=== PATIENT | male | born 1970 ===

== ENCOUNTER 2016-09-01 18:36 | Emergency (ER) | payer OTHER ==
[2016-09-01 18:55] VITALS: PULSE 78; RESP 16; TEMP 98.3; O2SAT 100
--- NOTE | 2016-09-01 19:05 | ED PDOC ---
Lower Extremity Pain/Injury Time Seen by Provider: 09/01/16 19:03 Chief Complaint (Nursing): Lower Extremity Problem/Injury Chief Complaint (Provider): left knee injury History Per: Patient History/Exam Limitations: no limitations - Knee Description Of Injury: Fell (two weeks ago fell on rug at home now with pain and pain with ROM. admits to swelling and reddness. no fever no chills no back ramana and no bug bite.) Past Medical History Reviewed: Historical Data, Nursing Documentation, Vital Signs Vital Signs: Last Vital Signs Temp 98.3 F 09/01/16 18:53 Pulse 78 09/01/16 18:53 Resp 16 09/01/16 18:53 BP Pulse Ox 100 09/01/16 18:53 - Medical History PMH: No Chronic Diseases - Family History Family History: States: No Known Family Hx - Home Medications Home Medications: Ambulatory Orders Medication Instructions Recorded Ibuprofen [Motrin Tab] 1 tab PO BID PRN 09/01/16 Leg Brace [Knee Brace] 1 each MC DAILY #1 each 09/01/16 Naproxen 500 mg PO BID #30 tablet. 09/01/16 - Allergies Allergies/Adverse Reactions: Allergies Allergy/AdvReac Type Severity Reaction Status Date / Time No Known Allergies Allergy Verified 09/01/16 18:53 Wells Criteria for PE - Wells Criteria for Pulmonary Embolism Clinical Signs and Symptoms of DVT: No P.E is #1 Diagnosis, or Equally Likely: No Heart Rate >100: No Immobilization at least 3 days;Surgery previous 4 weeks: No Previous, objectively diagnosed PE or DVT: No Hemoptysis: No Malignancy w/treatment within 6 months, or palliative: No Total Score: 0 Review of Systems ROS Statement: Except As Marked, All Systems Reviewed And Found Negative Musculoskeletal: Positive for: Other (knee pain) Physical Exam - Reviewed Nursing Documentation Reviewed: Yes Vital Signs Reviewed: Yes - Physical Exam Appears: Positive for: Well, Non-toxic, No Acute Distress Skin: Positive for: Normal Color, Warm, DRY Cardiovascular/Chest: Positive for: Regular Rate, Rhythm Respiratory: Positive for: CNT, Normal Breath Sounds Extremity: Positive for: Other (right knee:swelling noted superior to patella, no effusion noted. FROM of knee neurovasc intact no skin changes. ) Neurologic/Psych: Positive for: Alert, Oriented - ECG O2 Sat by Pulse Oximetry: 100 - Radiology X-Ray: Interpreted by Me X-Ray Interpretation: No Acute Disease (some dec joint space noted ) - Progress ED Course And Treament: xray to r/o bony injury. Medical Decision Making Medical Decision Making: Pt advised to f/u with orthopedic clinic for further eval advised to take naproxen for acute pain. no evidence of fx on xray . stable for d/c at this time. with SHLOMO wrap. applied to knee. Disposition - Clinical Impression Clinical Impression: Knee pain - Patient ED Disposition Is Patient to be Admitted: No Counseled Patient/Family Regarding: Studies Performed, Diagnosis, Need For Followup, Rx Given - Disposition Referrals: [facility] [Outside] [facility] [Outside] Disposition: Routine/Home Disposition Time: 19:38 Condition: STABLE Prescriptions: Leg Brace [Knee Brace] 1 each MC DAILY #1 each Naproxen 500 mg PO BID #30 tablet. Instructions: Arthritis (ED)
--- NOTE | 2016-09-02 08:10 | RAD ---
PROCEDURE: Right Knee Radiographs. HISTORY: knee injury COMPARISON: None. FINDINGS: BONES: Normal. No fracture. JOINTS: Medial osteoarthritis with marginal spur formation and compartmental narrowing. JOINT EFFUSION: None. OTHER FINDINGS: None. IMPRESSION: Medial compartment osteoarthritis.
== END 2016-09-01 19:53 | disposition home or self-care (01) ==
LOC: H.ER 18:36
DX: M25.562 Pain in left knee (principal); W19.XXXA Unspecified fall, initial encounter; Y92.008 Other place in unspecified non-institutional (private) residence as the place of occurrence of the external cause

== ENCOUNTER 2017-05-27 12:14 | Emergency (ER) | payer SELFPAY ==
[2017-05-27 12:26] VITALS: BP 109/72; PULSE 67; RESP 18; TEMP 98.2; O2SAT 98
--- NOTE | 2017-05-27 13:17 | ED PDOC ---
HPI: General Adult Time Seen by Provider: 05/27/17 12:32 Chief Complaint (Nursing): ENT Problem Chief Complaint (Provider): Right Ear Ache History Per: Patient History/Exam Limitations: no limitations Onset/Duration Of Symptoms: Days (3-4 days) Have you had recent travel within the past 21 days to any of the following countries: [place], [place], [place] or [place]?: No Current Symptoms Are (Timing): Still Present Additional Complaint(s): 46 year old male presents to the ED complaining of right ear ache. The patient states that the pain gets worse at night. Denies hearing changes, fever, head trauma. PMD: FAMILY PROVIDER,NO Past Medical History Reviewed: Historical Data, Nursing Documentation, Vital Signs Vital Signs: Last Vital Signs Temp 98.2 F 05/27/17 12:23 Pulse 67 05/27/17 12:23 Resp 18 05/27/17 12:23 BP 109/72 05/27/17 12:23 Pulse Ox 98 05/27/17 12:23 - Medical History PMH: No Chronic Diseases - Surgical History Surgical History: No Surg Hx - Family History Family History: States: Unknown Family Hx - Social History Current smoker - smoking cessation education provided: Yes (Light Smoker < 10 Cigarettes Daily) Ex-Smoker (has not smoked in the last 12 months): Yes Alcohol: Other Drugs: Denies - Home Medications Home Medications: Ambulatory Orders Medication Instructions Recorded Ibuprofen [Motrin Tab] 1 tab PO BID PRN 09/01/16 Leg Brace [Knee Brace] 1 each MC DAILY #1 each 09/01/16 Naproxen 500 mg PO BID #30 tablet. 09/01/16 Amoxicillin [Amoxil 500 mg Cap] 500 mg PO TID #30 cap 05/27/17 Neomycin/Polymyxin/Hydrocort 4 drop AD TID #1 bottle 05/27/17 [Cortisporin Opht Susp] - Allergies Allergies/Adverse Reactions: Allergies Allergy/AdvReac Type Severity Reaction Status Date / Time No Known Allergies Allergy Verified 09/01/16 18:53 Review of Systems Constitutional: Negative for: Fever ENT: Positive for: Ear Pain (right), Other (no hearing changes) Physical Exam - Reviewed Nursing Documentation Reviewed: Yes Vital Signs Reviewed: Yes - Physical Exam Appears: Positive for: No Acute Distress Head Exam: Positive for: NORMAL INSPECTION Skin: Positive for: Normal Color, Warm, Dry. Negative for: Rash Eye Exam: Positive for: Normal appearance, EOMI, PERRL ENT: Positive for: TM Is/Are (left TM within normal limits; Right TM obscured due to cerumen.). Negative for: Tonsillar Exudate, Tonsillar Swelling Neurologic/Psych: Positive for: Alert, Oriented - ECG O2 Sat by Pulse Oximetry: 98 (RA) Pulse Ox Interpretation: Normal Medical Decision Making Medical Decision Makin Initial Impression 46 y/o male presenting with right ear ache Initial Plan: * Reevaluation 1300 (Procedure Note- Cerumen Romoval) Timeout: A timeout to verify the correct patient, procedure, and site was performed immediately prior to the procedure. Indication: Cerumen impaction Procedure: The cerumen was removed using curette. Post-procedure: Patient tolerated the procedure well with no immediate complications. Cerumen removed from right ear canal w/o difficulty or incident and TM was visulized. Right TM erythematous and bulging. Ear canal no bleeding but erythematous Documented by Cecelia Villeda acting as a scribe for Thee Edwards PA-C. All medical record entries made by the Scribe were at my direction and personally dictated by me. I have reviewed the chart and agree that the record accurately reflects my personal performance of the history, physical exam, medical decision making, and the department course for this patient. I have also personally directed, reviewed, and agree with the discharge instructions and disposition. Procedures - Time-Out PA/Tech: Thee Edwards PA-C Disposition - Clinical Impression Clinical Impression: Otitis media, Cerumen impaction - Patient ED Disposition Is Patient to be Admitted: No Counseled Patient/Family Regarding: Studies Performed, Diagnosis - Disposition Disposition: Routine/Home Disposition Time: 13:15 Condition: STABLE Prescriptions: Amoxicillin [Amoxil 500 mg Cap] 500 mg PO TID #30 cap Neomycin/Polymyxin/Hydrocort [Cortisporin Opht Susp] 4 drop AD TID #1 bottle Instructions: Cerumen Impaction (ED), Otitis Media (ED) Forms: [email or web address] (Vietnamese) Print Language: LUXEMBOURGER - ALEX Present On Arrival: None
== END 2017-05-27 13:55 | disposition home or self-care (01) ==
LOC: H.ER 12:14
DX: H61.21 Impacted cerumen, right ear (principal); F17.210 Nicotine dependence, cigarettes, uncomplicated